=== PATIENT | male | born 1950 | race Caucasian/White ===

== ENCOUNTER → 2023-09-01 12:21 | Outpatient (CLI) | payer MEDICARE, OTHER, SELFPAY ==
--- NOTE | 2023-09-01 13:00 | DI.MRI.S_ITS ---
PROCEDURE: MR SHOULDER RT WO CON INDICATIONS: Unspecified rotator cuff tear or rupture of right TECHNIQUE: Noncontrast oblique coronal T2 fast spin echo with fat saturation, oblique sagittal T1 spin echo and T2 fast spin echo with fat saturation, axial T1 spin echo and T2 fast spin echo with fat saturation through the shoulder. COMPARISON: [facility], CR, XR SHOULDER 2+ VIEWS RIGHT, 08/27/2023, 13:28. FINDINGS: Image quality: Excellent. Rotator cuff: Mild tendinosis of the supraspinatus, most pronounced in the anterior fiber. Multifocal low-grade interstitial tear at the footprint of the supraspinatus. The infraspinatus is unremarkable. The teres minor is unremarkable. Low-grade tear of the superior fibers of the subscapularis. No fatty infiltration or muscle edema. Moderate atrophy of the superior fiber of the subscapularis. Bones and bursae: Moderate degenerative changes of the acromioclavicular joint. Type 1 acromion. No os acromiale. Mild subacromial/subdeltoid bursitis. Multi focal mild subchondral cystic changes and marrow edema in the humeral head, favoring reactive. No acute fracture. Capsule and soft tissues: Superior labral tear, extending anteriorly to the anterior labrum. The extra-articular biceps tendon is diminutive, but is intact. The distal intra-articular biceps tendon is not visualized, and may be torn. Small glenohumeral effusion. Mild subcoracoid bursitis. No intra-articular bodies. IMPRESSION: 1. Low-grade tear of the supraspinatus. 2. Low-grade tear of the superior fibers of the subscapularis with moderate atrophy. 3. Moderate degenerative changes of the acromioclavicular joint. 4. Findings concerning for full-thickness tear of the distal intra-articular biceps tendon. Dictated by: Lynsey Ferrari M.D. on 09/01/2023 at 21:03 Approved by: Lynsey Ferrari M.D. on 09/01/2023 at 21:14
== END ==
PROVIDERS: Referring Provider Orthopaedic Surgery; Visit Provider Orthopaedic Surgery
DX: M75.111 Incomplete rotator cuff tear or rupture of right shoulder, not specified as traumatic (principal)
CPT/HCPCS: 73221

== ENCOUNTER → 2024-07-27 08:31 | Outpatient (CLI) | payer MEDICARE, OTHER, SELFPAY ==
[2024-07-27 09:46] LABS: Add Manual Diff / Slide Review NO; Basophils Absolute Auto 0 /uL (0-100); Basophils Percent Auto 0.7 % (0-2); Eosinophils Absolute Auto 200 /uL (0-450); Eosinophils Percent Auto 2.9 % (2-4); Lymphocytes Absolute Auto 1100 /uL (1100-4500); Lymphocytes Percent Auto 18.5 % (25-40); Mean Corpuscular HGB Conc 34.8 % (30-36); Mean Corpuscular Hemoglobin 32.5 PG (26-34); Mean Corpuscular Volume 93.3 fL (80-100); Monocytes Absolute Auto 400 /uL (0-900); Monocytes Percent Auto 6.8 % (3-14); Neutrophils Absolute Auto 4400 /uL (1500-7000); Neutrophils Percent Auto 71.1 % (50-75); Platelet Count 188 X10^3/uL (150-400); Red Blood Cell Count 4.61 X10^6/uL (4.5-5.9); Red Cell Distribution Width 13.5 % (11.6-14.8); White Blood Cell Count 6.1 X10^3/uL (4.5-11.0)
[2024-07-27 10:00] LABS: Alanine Aminotransferase 65 IU/L (<50); Albumin 4.2 g/dL (3.5-5.0); Albumin Globulin Ratio 1.6 (1.0-2.8); Alkaline Phosphatase 50 U/L (38-126); Aspartate Aminotransferase 55 IU/L (17-59); BUN Creatinine Ratio 26.6 (6-22); Bilirubin Total 1.2 mg/dL (0.2-1.3); Blood Urea Nitrogen 21 mg/dL (9-20); Calcium 9.6 mg/dL (8.4-10.2); Carbon Dioxide 31 mmol/L (22-32); Chloride 102 mmol/L (98-107); Estimated Glomerular Filt Rate > 60 mL/min (>60); Globulin 2.7 g/dL (1.7-4.1); Glucose 105 mg/dL (70-99); HEMOLYSIS < 15 (0-50); Potassium 4.8 mmol/L (3.4-5.1); Sodium 138 mmol/L (137-145); Total Protein 6.9 g/dL (6.3-8.2)
== END ==
LOC: LAB 08:39
DX: M20.42 Other hammer toe(s) (acquired), left foot (principal)
CPT/HCPCS: 36415; 80053; 85025

== ENCOUNTER → 2024-10-26 09:12 | Outpatient (CLI) | payer MEDICARE, OTHER, SELFPAY ==
--- NOTE | 2024-10-26 09:13 | DI.US.S_ITS ---
PROCEDURE: US ABDOMEN LIMITED INDICATIONS: Right Upper Quadrant Pain TECHNIQUE: Real-time scanning was performed of the abdominal and retroperitoneal organs, with image documentation. COMPARISON: None. FINDINGS: Liver: Diffusely increased hepatic echogenicity. No focal mass. Gallbladder: A 1.1 cm mobile stone in the gallbladder lumen. Trace sludge. No wall thickening. No pericholecystic edema. Negative sonographic Schaefer's sign. Biliary ducts: Intrahepatic bile ducts are non-dilated. Extrahepatic bile duct caliber measures 6 mm. Normal is 6-7 mm or less in diameter, or 10 mm or less post-cholecystectomy. Pancreas: Visualized portions of the pancreas are sonographically normal. Miscellaneous: No free abdominal fluid. IMPRESSION: 1. Cholelithiasis without acute cholecystitis. 2. Diffusely increased right hepatic echogenicity, concerning for hepatocellular dysfunction such as hepatic steatosis. Dictated by: Asim Prater M.D. on 10/26/2024 at 13:03 Approved by: Asim Prater M.D. on 10/26/2024 at 13:10
== END ==
LOC: US 09:13
PROVIDERS: PCP Family Medicine; Referring Provider Family Medicine; Visit Provider Family Medicine
DX: K80.20 Calculus of gallbladder without cholecystitis without obstruction (principal); R10.11 Right upper quadrant pain; B19.20 Unspecified viral hepatitis C without hepatic coma; R74.8 Abnormal levels of other serum enzymes
CPT/HCPCS: 76705